=== PATIENT | male | born 1960 | race Caucasian/White ===

== ENCOUNTER 2017-03-10 14:53 | Emergency (ER) | payer OTHER ==
[2017-03-10 14:54] VITALS: BMI 31.3
[2017-03-10 15:39] LABS: BASO % 0.5 % (0.0-2.0); EOS # 0.1 K/uL (0.0-0.7); EOS % 0.9 % (0.0-4.0); LYMPH # 3.8 K/uL (1.0-4.3); LYMPH % 36.1 % (20.0-40.0); MEAN CELL VOLUME 87.3 fL (80.0-94.0); MEAN CORPUSCULAR HGB CONC 34.3 g/dL (33.0-37.0); MEAN PLATELET VOLUME 8.8 fL (7.2-11.7); MONO # 0.7 K/uL (0.0-0.8); MONO % 6.8 % (0.0-10.0); NEUT # 5.9 K/uL (1.8-7.0); NEUT % 55.7 % (50.0-75.0); RBC 3.65 Mil/uL (4.40-5.90); RED CELL DISTRIBUTION WIDTH 15.8 % (11.5-14.5); WHITE BLOOD COUNT 10.6 K/uL (4.8-10.8)
[2017-03-10 15:55] LABS: ALB/GLOB RATIO 0.9 (1.0-2.1); ALBUMIN 3.6 g/dL (3.5-5.0); ALT/SGPT 22 U/L (21-72); AST/SGOT 23 U/L (17-59); BLOOD UREA NITROGEN 18 mg/dL (9-20); CALCIUM 8.4 mg/dl (8.6-10.4); GFR AFRICAN-AMERICAN > 60; GFR NON-AFRICAN AMERICAN > 60
[2017-03-10 16:01] VITALS: RESP 20; O2SAT 98
--- NOTE | 2017-03-10 16:14 | CT ---
PROCEDURE: CT HEAD WITHOUT CONTRAST. HISTORY: difficulty walking and speaking since last night COMPARISON: None available. TECHNIQUE: Axial computed tomography images were obtained through the head/brain without intravenous contrast. Radiation dose: Total exam DLP = 894.13 mGy-cm. This CT exam was performed using one or more of the following dose reduction techniques: Automated exposure control, adjustment of the mA and/or kV according to patient size, and/or use of iterative reconstruction technique. FINDINGS: HEMORRHAGE: No intracranial hemorrhage. BRAIN: Small subcentimeter focal encephalomalacia at the right putamen and external capsule likely represent old lacunar infarct. Mild atrophy and mild chronic microvascular white matter ischemic disease. VENTRICLES: Unremarkable. No hydrocephalus. CALVARIUM: Unremarkable. PARANASAL SINUSES: Unremarkable as visualized. No significant inflammatory changes. MASTOID AIR CELLS: Unremarkable as visualized. No inflammatory changes. OTHER FINDINGS: None. IMPRESSION: Old lacunar infarct at the right basal ganglia. Mild atrophy and mild chronic microvascular white matter ischemic disease. No evidence of acute intracranial hemorrhage.
[2017-03-10 17:07] VITALS: BP 145/85; PULSE 78; TEMP 98.3
--- NOTE | 2017-03-10 17:13 | C.PDOC ---
History Of Present Illness 56 y/o male presents to the ED from the office of Dr. Hamilton Rosas for an evaluation of slurred speech and low extremity weakness which occurred last night. The patient states that this morning the symptoms have been resolved and went to the PMD for further evaluation. The patient denies fever, chest pain , and SOB. Time Seen by Provider: 03/10/17 15:25 Chief Complaint (Nursing): Weakness/Neurological Deficit History Per: Patient History/Exam Limitations: no limitations Onset/Duration Of Symptoms: Hrs Current Symptoms Are (Timing): Still Present Past Medical History Reviewed: Historical Data, Nursing Documentation, Vital Signs Vital Signs: Last Vital Signs Temp 98.3 F 03/10/17 17:06 Pulse 78 03/10/17 17:06 Resp 20 03/10/17 17:06 BP 145/85 03/10/17 17:06 Pulse Ox 98 03/10/17 19:03 - Medical History PMH: Hypercholesterolemia Denies: Chronic Kidney Disease Surgical History: No Surg Hx - [facility] Procedures CATARAC PHACOEMULS/ASPIR (07/01/14) INSERT LENS AT CATAR EXT (07/01/14) Family History: States: No Known Family Hx - Social History Hx Alcohol Use: No Hx Substance Use: No - Immunization History Hx Tetanus Toxoid Vaccination: No Hx Influenza Vaccination: No Hx Pneumococcal Vaccination: No Review Of Systems Except As Marked, All Systems Reviewed And Found Negative. Constitutional: Negative for: Fever, Chills Cardiovascular: Negative for: Chest Pain, Palpitations Respiratory: Negative for: Cough, Shortness of Breath Gastrointestinal: Negative for: Nausea, Vomiting, Abdominal Pain Skin: Negative for: Rash Neurological: Positive for: Change in Speech (slurred ). Negative for: Confusion Physical Exam - Physical Exam Appears: Non-toxic, No Acute Distress Skin: Warm, Dry Head: Atraumatic, Normacephalic Eye(s): bilateral: Normal Inspection Oral Mucosa: Moist Neck: Supple Chest: Symmetrical Cardiovascular: Rhythm Regular Respiratory: Normal Breath Sounds, No Rales, No Rhonchi Gastrointestinal/Abdominal: Soft, No Tenderness, No Guarding, No Rebound Back: Normal Inspection Extremity: Capillary Refill (2<sec.) Neurological/Psych: Oriented x3, Normal Speech, Normal Cognition Gait: Steady ED Course And Treatment - Laboratory Results Result Diagrams: 03/10/17 15:34 03/10/17 15:34 O2 Sat by Pulse Oximetry: 98 (RA) Progress Note: Patient refuses to stay in the hospital. Risks of leaving was explained including possible stroke, and or . The patient understood and signed the AMA and the patient was given medication as per PMD Dr. rosas. Medical Decision Making Medical Decision Making: IMPRESSION: Old lacunar infarct at the right basal ganglia. Mild atrophy and mild chronic microvascular white matter ischemic disease. No evidence of acute intracranial hemorrhage. Disposition - Disposition Referrals: Danelle Rosas MD [Staff Provider] - Disposition: AGAINST MEDICAL ADVICE Disposition Time: 17:15 Condition: GUARDED Additional Instructions: Thank you for letting us take care of you today. The emergency medical care you received today was directed at your acute symptoms. If you were prescribed any medication, please fill it and take as directed. It may take several days for your symptoms to resolve. Return to the Emergency Department if your symptoms worsen, do not improve, or if you have any other problems. Please contact your doctor or call one of the physicians/clinics you have been referred to that are listed on the Patient Visit Information form that is included in your discharge packet. Bring any paperwork you were given at discharge with you along with any medications you are taking to your follow up visit. Our treatment cannot replace ongoing medical care by a primary care provider (PCP) outside of the emergency department. Thank you for allowing the [email or web address] team to be part of your care today. Follow up with Dr. Rosas in 3 days for further management and re-evaluation. Prescriptions: Aspirin 325 mg PO DAILY #30 tab Rosuvastatin Calcium [Crestor] 10 mg PO DAILY #14 tab Instructions: Transient Ischemic Attack (ED) Forms: [employer] (Malay) - Clinical Impression Clinical Impression: Weakness of limb - Scribe Statement The provider has reviewed the documentation as recorded by the Scribe Nely Cavazos
== END 2017-03-10 17:25 | disposition left against medical advice (07) ==
LOC: C.ER 14:53
DX: R53.1 Weakness (principal); E78.00 Pure hypercholesterolemia, unspecified